=== PATIENT | female | born 1965 | race Caucasian/White ===

== ENCOUNTER → 2018-06-01 | Outpatient (CLI) | payer OTHER ==
--- NOTE | 2018-06-01 11:02 | RADIOLOGY REPORT (SQ) ---
EXAM DESCRIPTION: U/S [id number] TRNABD 1GES W/ODOP COMPLETED DATE/TIME: 06/01/2018 10:46 am REASON FOR STUDY: VIABILITY O09.00 SUPRVSN OF PREG W HISTORY OF INFERTILITY, UNSP TRIMES COMPARISON: none TECHNIQUE: Transvaginal and transabdominal static and realtime grayscale images acquired of the pelv is. Additional selected spectral and color Doppler images recorded. All images stored on PACs. bHCG: Not available. CLINICAL DATES: Not Available. LIMITATIONS: none FINDINGS: Twin Intra-uterine gestation TYPE OF TWIN: Dichorionic Diamniotic. Two gestation sacs. TWIN A: ULTRASOUND EGA: 6 week 2 day. ULTRASOUND CORKY: 01/23/2019. CRL: 0.4 cm. FHR: 102 bpm SUBCHORIONIC BLEED: No. SIZE OF BLEED: Not applicable. TWIN B: ULTRASOUND EGA: 6 week 2 day. ULTRASOUND CORKY: 01/23/2019. POLE: Not visualized. YOLK SAC: Not visualized. SUBCHORIONIC BLEED: No. SIZE OF BLEED: Not applicable. UTERUS: No masses. No anomalies. CERVICAL LENGTH: 3.8 cm. Closed. RIGHT ADNEXA: Ovary not identified. No adnexal free fluid. No adnexal masses. LEFT ADNEXA: Ovary not identified. No adnexal free fluid. No adnexal masses. FREE FLUID: None. OTHER: No other significant finding. IMPRESSION: TWIN INTRAUTERINE TWIN A EGA: 6 Week 2 Day. TWIN B EGA: 6 WEEK 2 DAY, BASED ON GESTATIONAL SAC DIAMETER. POLE AND YOLK SAC NOT VISUALIZED. RECOMMEND SHORT-TERM INTERVAL FOLLOWUP TO DETERMINE IF THERE IS NORMAL DEVELOPMENT OF THE FETUS. Trimester of : First - 0 to 13 weeks. TECHNICAL DOCUMENTATION: JOB ID: [id number] [employer]- All Rights Reserved rev Reading location - IP/workstation name: [id number]
== END ==
LOC: RAD 09:11
PROVIDERS: ATTEND Obstetrics & Gynecology Reproductive Endocrinology
DX: O09.00 Supervision of pregnancy with history of infertility, unspecified trimester (principal)
CPT/HCPCS: 36415; 76801; 82670; 84144; 84443; 84702